=== PATIENT | male | born 1995 | race Two or more races ===

== ENCOUNTER 2024-04-25 11:40 | Day surgery (SDC) | payer BC, SELFPAY ==
[2024-04-24 10:23] VITALS: BMI 42.7
[2024-04-24 12:31] LABS: Alanine Aminotransferase 40 U/L (10-49); Albumin, Serum 4.6 gm/dL (3.5-5.0); Albumin/Globulin Ratio 1.5 (1.2-2.2); Alkaline Phosphatase 53 U/L (46-116); Anion Gap 6 (7-16); Aspartate Amino Transferase 27 U/L (0-34); BUN/Creatinine Ratio 17 Ratio (12-20); Bilirubin,Total 0.5 mg/dL (0.3-1.2); Blood Urea Nitrogen 15 mg/dL (9-23); Calcium 10.1 mg/dL (8.3-10.6); Calcium (Corrected) 10.1 mg/dL (8.5-10.1); Carbon Dioxide 29.1 mMol/L (20.0-31.0); Chloride 106 mMol/L (98-107); Creatinine (Component) 0.9 mg/dL (0.6-1.3); Estimated Creatinine Clearance 121.8 mL/min (>60); Globulin 3.1 gm/dL (2.3-3.5); Glucose 90 mg/dL (74-106); Osmolality,Calculated 282 (275-295); Potassium 4.1 mMol/L (3.4-5.1); Sodium 141 mMol/L (136-145); Total Protein 7.7 gm/dL (5.7-8.2); eGFR > 60 See Note
[2024-04-25] VITALS (7 sets, daily range): BP systolic 109–139; BP diastolic 71–93; PULSE 66–98; RESP 12–19; TEMP 36.2–36.6; O2SAT 95–99; BMI 42.6
[2024-04-25] MEDS: OXYMETAZOLINE NAS SPRY 0.05% 15 ML BTL 3 SPRAY NASAL (14:21)
[2024-04-25] MEDS: RINGERS LACTATED 500 ML 500 ML 20 ML IV (14:26)
--- NOTE | 2024-04-25 16:45 | PD.SUROPNT ---
Date of Procedure 04/25/24 Pre Op Diagnosis Nasal septal deviation with obstruction Bilateral inferior turbinate hypertrophy Post Op Diagnosis Nasal septal deviation with obstruction Bilateral inferior turbinate hypertrophy Procedure Intranasal septoplasty Bilateral submucous resection of inferior turbinates Findings Patient had a grade 3 septal deviation to the right including cartilaginous and bony septum with a spur to the right along the floor. Both inferior turbinates were enlarged. Nasal tip support was weak and prior to surgery. Patient had a collapsing nasal tip. Procedure Description Procedure risk were discussed as well as anticipated outcomes. Patient wished proceed with surgery. He is aware that there will be no cosmetic type procedure performed. Patient was transferred to the operative suite where he was anesthetized and intubated. Patient was sterilely draped and timeout performed. Caudal end of the septum as well as the inferior turbinates were injected with 1% lidocaine with 1 1 or thousand Levi epinephrine. Approximately 7 cc total were used. Caudal rim incision was made on the left side there was a tear that occurred literally extending anterior partially back posteriorly. Was able to get underneath the perichondrium however and elevate that off of the remaining cartilage and then the periosteum off the bone. Perpendicular plate was from the quadrangular cartilage with a freer elevator mucosal flap elevated off the right side. The right side remained intact. Michael forceps were used to remove the deviated perpendicular plate in a piecemeal fashion. Caudal elevator was used to fracture over remove most of the inferior spurring. There was some cartilaginous flaring posteriorly and this was trimmed off with the cartilage knife. A strong anterior superior strut was left in place. Mucosal flaps were then reapproximated with 4-0 plain gut suture in a quilting type stitch. This used to close the rim incision as well. Both inferior turbinates reduced in a submucosal plane with a 2.9 mm turbinate shaver blade. Dissection was performed on insertion and withdrawal. Procedure was performed first on the left side and then the right side. Entry sites were cauterized with suction cautery. Patient was then awakened and taken recovery room in stable condition Anesthesia GETA Pathology / specimen None Estimated Blood Loss 10 Surgeon Kennedy Gardiner DO Surgical Staff Operation Date: 04/25/24 14:00 Case Staff Anesthesiologist: Saman Null
--- NOTE | 2024-04-25 16:52 | SUR.PHASEI ---
Pt. arrived to recovery via gurney, eyes open, able to follow verbal commands, VSS, lung sounds clear, equal expansion snow., pt. receiving 6 liters 02 via oxymask, dressing nasal bridal changed d/t pt. coughed and blood on dressing, no c/o pain or nausea at this time, report received from Dr. Null and Adam CHAVEZ.
--- NOTE | 2024-04-25 17:07 | SUR.PHASEI ---
Pt. sitting up, tolerating sips of water.
--- NOTE | 2024-04-25 17:45 | SUR.PHASEII ---
Pt. meets criteria for discharge, VSS, no c/o pain or nausea, dressing to nose changed and instructed pt. and pt.'s gf on dressing change, IV discontinued without complications, discharge instructions provided to pt. and pt.'s gf, verbalized understanding. Pt. escorted to vehicle via w/c with all of belongings by staff.
== END 2024-04-25 17:45 | disposition home or self-care (01) ==
PROVIDERS: Anesthesiology; PCP Nurse Practitioner Family; Referring Provider Otolaryngology; Visit Provider Otolaryngology
PROC: (CPT 30520; principal; 2024-04-25 13:45)
DX: J34.2 Deviated nasal septum (principal); J34.3 Hypertrophy of nasal turbinates
CPT/HCPCS: 30140; 36415; 80053; A4217; A4649; J0690; J1100; J1885; J2250; J2405; J2704; J3010; J3490; J7040; J7120

== ENCOUNTER 2024-08-29 17:03 | Emergency (ER) | payer OTHER, SELFPAY ==
[2024-08-29 17:37] VITALS: BP 126/82; PULSE 85; RESP 18; TEMP 36.8; O2SAT 96; BMI 35.9
--- NOTE | 2024-08-29 17:47 | XR_ITS ---
Examination: Shoulder,left, 3 views Technique: Shoulder AP internal rotation, AP external rotation, Y view shoulder, 3 views Exam date and time :August 29, 2024 1811 hrs. Indications: Work injury to the shoulder today, shoulder pain. Findings: No shoulder fracture or dislocation. No acromioclavicular joint separation. No foreign body Impression: No shoulder fracture or dislocation
--- NOTE | 2024-08-29 17:49 | PD.EDRME ---
Rapid Medical Screening Exam RME Arrival date/time: 08/29/24 17:03 29-year-old male presents to the emergency department with complaints of left shoulder pain. Status post work injury. Chief Complaint: Extremity Injury, Upper Time Seen by Provider: 08/29/24 17:30 Vital signs: Vital Signs Temperature 98.2 F 08/29/24 17:37 Pulse Rate 85 08/29/24 17:37 Respiratory Rate 18 08/29/24 17:37 Blood Pressure 126/82 08/29/24 17:37 Pulse Oximetry (%) 96 08/29/24 17:37 Oxygen Delivery Method Room Air 08/29/24 17:37
--- NOTE | 2024-08-29 19:29 | PD.EDUPEX ---
Upper Extremity Injury RME/HPI General Chief Complaint: Extremity Injury, Upper Stated Complaint: LEFT SHOULDER PAIN / INJURY FROM WORK; COMP Time Seen by Provider: 08/29/24 17:30 Arrival date/time: 08/29/24 17:03 RME / HPI RME / HPI narrative: 29-year-old male patient who came in for evaluation regarding left shoulder pain. Onset of symptoms earlier today, patient was working, patient got hit with a platform that got collapsed, resulted in pain to the left shoulder, hemostatic, severity moderate. Patient is ambulatory denies any other injury. No medications taken prior to arrival. Related Data Home Medications ?Medication ?Instructions ?Recorded ?Confirmed fluticasone propionate 50 1 spray intranasal DAILY 04/24/24 04/24/24 mcg/actuation nasal spray,suspension Held on 04/25/24. Instructions: Resume on 05/09/24. Previous Rx's ?Medication ?Instructions ?Recorded acetaminophen 300 mg-codeine 30 mg 1 tab PO Q4H PRN pain #24 tabs 04/25/24 tablet cephalexin 500 mg capsule 500 mg PO BID #4 caps 04/25/24 ibuprofen 800 mg tablet 800 mg PO TID PRN pain #30 tabs 08/29/24 Allergies Allergy/AdvReac Type Severity Reaction Status Date / Time NKA* Allergy Uncoded 08/29/24 17:07 Review of Systems Review of Systems Narrative Review of Systems: Review of system reviewed and within normal limits except mentioned in HPI ED Exam Narrative Physical exam: VITAL SIGNS: Reviewed. GENERAL APPEARANCE: Alert and interactive, follows commands, no acute distress, HEAD AND FACE: Non-traumatic. ENT: PERRL, pink conjunctivitis, eyelid no trauma, Mucous membrane moist. NECK: Supple, nontender, no nuchal rigidity. CHEST: No tenderness, no crepitus, no paradoxical movement, no retractions. LUNGS: Clear, well ventilated, symmetric, no rales, no wheezing, no ronchi, no stridor, good breath sounds bilaterally. HEART: Regular rate, regular rhythm, no murmur, no gallops. ABDOMEN: Soft, positive bowel sounds, nondistended, no guarding, nontender, no rebound, no masses, RECTAL: Deferred. GENITAL: Deferred. NEUROLOGICAL: Gross motor function intact sensory function intact, Appropriate for age. MUSCULOSKELETAL: low back nontender, full range of motion. EXTREMITIES: Left shoulder tenderness, limitation range of motion. No deformity no crepitus SKIN: Color pink, dry, no rash, no lacerations, no abrasions, no contusions. LYMPHATICS: Deferred. Course Quality Measures none Orders Category Date Time Status sling [Splint / Immobilizer] STAT Care 08/29/24 19:21 Active XR shoulder LT min 2V Stat Exams 08/29/24 17:47 Completed HYDROcodone*/APAP 5/325 [[place] 5/325] Med 08/29/24 19:21 Discontinued 1 tab PO X1 ONE Vital Signs Vital signs: Vital Signs Temperature 98.2 F 08/29/24 17:37 Pulse Rate 85 08/29/24 17:37 Respiratory Rate 18 08/29/24 17:37 Blood Pressure 126/82 08/29/24 17:37 Pulse Oximetry (%) 96 08/29/24 17:37 Oxygen Delivery Method Room Air 08/29/24 17:37 Extremity Injury [facility] Narrative [facility] Narrative:: 29-year-old male patient who came in for evaluation regarding left shoulder pain. Onset of symptoms earlier today, patient was working, patient got hit with a platform that got collapsed, resulted in pain to the left shoulder, hemostatic, severity moderate. Patient is ambulatory denies any other injury. No medications taken prior to arrival. X-ray of the shoulder came back unremarkable. Results discussed with the patient. Patient was supplied with arm sling. Patient appears nontoxic and hemodynamically stable. Patient discharged home and instructed to follow-up with primary care provider in 24 to 48 hours. Instructed to return to the emergency department immediately if worsening of symptoms Patient data External records reviewed:: None Clinical information provided by:: patient Social determinants that could affect healthcare access:: none Patient has the following chronic illnesses:: None How is presenting disease/condition affected by chronic disease/condition?: no chronic disease Evaluation data The following diagnostics were reviewed and interpreted by me:: radiology exam(s) Lab and/or radiology exams considered but not ordered:: None Interpretation Summary: See results in MDM Medications / Prescriptions Medications or Prescriptions considered but not ordered:: None Medication administrations:: Medication Administration History Discontinued Medications Hydrocodone Bitart/Acetaminophen (Hydrocodone/Apap 5/325 Tablet) 1 tab PO X1 ONE Stop: 08/29/24 19:22 [place] Consultations Consultation(s) initiated? (list below): No Diagnosis Upper Extremity Injury Differential Diagnosis: dislocation of shoulder and fracture of humerus Most likely diagnosis given after review of the tests above:: Shoulder pain Admission Indicated Admission indicated?: not indicated Admission Request Was there a request for admission?: No Disposition Plan Disposition Plan: Discharge Discharge Attestation Discharge Attestation: The patient and all family members were given an opportunity to ask questions and understood the discharge instructions. Discharge instructions specifically effects, indications for sooner follow up or return to the emergency department, and the expected course of current diagnosis. Patient condition: Stable Discharge Plan Plan Patient Disposition: HOME (Self Care) Disposition Comment: Stable Prescriptions/Referrals Prescriptions/Med Rec: New ibuprofen 800 mg tablet 800 mg PO TID PRN (Reason: pain) Qty: 30 0RF No Action fluticasone propionate 50 mcg/actuation spray,suspension 1 spray INTRANASAL DAILY Patient Comments: SPRAY 2 SPRAYS INTO EACH NOSTRIL EVERY DAY cephalexin 500 mg capsule 500 mg PO BID Qty: 4 0RF acetaminophen-codeine 300-30 mg tablet 1 tab PO Q4H PRN (Reason: pain) Qty: 24 0RF Referrals: No Primary/Family,Physician [Primary Care Provider] - In 1 week Problem List Clinical Impression: Shoulder sprain Patient/Caregiver Discharge Instructions Discharge Activity: activity as tolerated Education Materials: ED Shoulder Sprain Additional Instructions: Thank you for the opportunity for serving you today. You are stable for discharged . You are advised to: Follow-up with your PCP in 1 to 2 days Return to ED for worsening of symptoms Increase oral fluids Take medication as prescribed Wear your arm sling as needed for pain Print Language: Greenlandic Stand Alone Forms: Florinda Award Info., Patient Portal Info Letter PRESTON/DAGOBERTO Supervising Physician PRESTON/DAGOBERTO Supervising Physician: MD Kori
[2024-08-29] MEDS: HYDROcodone/APAP 5/325 TABLET 1 TAB PO (19:38)
== END 2024-08-29 19:43 | disposition home or self-care (01) ==
PROVIDERS: Emergency Provider Emergency Medicine
DX: S43.402A Unspecified sprain of left shoulder joint, initial encounter (principal); W20.8XXA Other cause of strike by thrown, projected or falling object, initial encounter; Y93.89 Activity, other specified; Y99.0 Civilian activity done for income or pay
CPT/HCPCS: 73030; 99283; A4565; A9270